=== PATIENT | male | born 1940 | race Caucasian/White ===

== ENCOUNTER 2017-01-29 10:26 | Emergency (ER) | payer MEDICARE, OTHER ==
[~2017-01-29] VITALS: Ht 167.6 cm; Wt 71.0 kg
[~2017-01-29 10:26] MED LIST: AUG875 PO; NAPR-688 PO
[2017-01-29 10:28] VITALS: Ht 167.6 cm; Wt 71.0 kg
[2017-01-29] MEDS ORDERED: ACETAMINOPHEN 500 MG TAB PO STA (11:46)
--- NOTE | 2017-01-29 11:50 | ERD ---
ER Documentation Chief Complaint Date/Time DATE: 01/29/17 TIME: 11:48 Chief Complaint Complains of cough, colds and flu-like symptoms x 3 days HPI This is a 76-year-old male who presents the emergency department today complaining of cough, fever, chills and some back pain for the past 4 days. States he has tried NyQuil and fatigue. Denies any medical problems. Denies any vomiting, diarrhea, abdominal pain, dysuria ROS All systems reviewed and are negative except as per history of present illness. Medications Home Meds Active Scripts Naproxen* (Naproxen*) 500 Mg Tablet, 500 MG PO BID Y for PAIN, #30 TAB Prov:AYDE BROWNING PA-C 10/07/14 Amoxicillin-Clavulanate K* (Augmentin*) 875 Mg Tab, 875 MG PO BID for 10 Days Prov:AYDE BROWNING PA-C 10/07/14 Allergies Allergies: Coded Allergies: No Known Allergy (Unverified , 01/25/12) PMhx/Soc History of Surgery: No Anesthesia Reaction: No Hx Neurological Disorder: No Hx Respiratory Disorders: No Hx Cardiac Disorders: No Hx Psychiatric Problems: No Hx Miscellaneous Medical Probl: No Hx Alcohol Use: Yes Hx Substance Use: No Hx Tobacco Use: No Physical Exam Vitals Vital Signs Date Time Temp Pulse Resp B/P Pulse Ox O2 Delivery O2 Flow Rate FiO2 01/29/17 14:29 99.3 01/29/17 12:07 100.4 89 22 98 Room Air 01/29/17 10:28 100.1 92 20 134/76 97 Physical Exam Const: NAD Head: Atraumatic Eyes: Normal Conjunctiva ENT: Ears TMs normal. Nose no drainage. Throat no erythema no exudate Neck: Full range of motion..~ No meningismus. Resp: Clear to auscultation bilaterally Cardio: Regular rate and rhythm, no murmurs Abd: Soft, non tender, non distended. Normal bowel sounds Skin: No petechiae or rashes Back: No midline tenderness. Nonspecific thoracic and upper back tenderness Ext: No cyanosis, or edema Neur: Awake and alert Psych: Normal Mood and Affect Result Diagram: 01/29/17 1043 01/29/17 1043 Results 24 hrs Laboratory Tests Test 01/29/17 10:43 01/29/17 12:30 White Blood Count 10.310^3/ul Red Blood Count 5.0410^6/ul Hemoglobin 14.4g/dl Hematocrit 44.8% Mean Corpuscular Volume 88.9fl Mean Corpuscular Hemoglobin 28.6pg Mean Corpuscular Hemoglobin Concent 32.1g/dl Red Cell Distribution Width 12.8% Platelet Count 43117^3/UL Mean Platelet Volume 9.7fl Neutrophils % 77.8% Lymphocytes % 10.1% Monocytes % 10.5% Eosinophils % 0.8% Basophils % 0.4% Nucleated Red Blood Cells % 0.0/100WBC Neutrophils # 8.010^3/ul Lymphocytes # 1.010^3/ul Monocytes # 1.110^3/ul Eosinophils # 0.110^3/ul Basophils # 0.010^3/ul Nucleated Red Blood Cells # 0.010^3/ul Sodium Level 139mmol/L Potassium Level 4.2mmol/L Chloride Level 107mmol/L Carbon Dioxide Level 23mmol/L Anion Gap 13 Blood Urea Nitrogen 13mg/dl Creatinine 0.87mg/dl Glucose Level 113mg/dl Calcium Level 9.4mg/dl Total Bilirubin 0.5mg/dl Direct Bilirubin 0.00mg/dl Indirect Bilirubin 0.5mg/dl Aspartate Amino Transf (AST/SGOT) 33IU/L Alanine Aminotransferase (ALT/SGPT) 36IU/L Alkaline Phosphatase 57IU/L Total Protein 8.3g/dl Albumin 4.5g/dl Globulin 3.80g/dl Albumin/Globulin Ratio 1.18 Urine Color MARIA DE JESUS Urine Clarity SLIGHTLY CLOUDY Urine pH 5.0 Urine Specific [place] 1.023 Urine Ketones NEGATIVEmg/dL Urine Nitrite NEGATIVEmg/dL Urine Bilirubin NEGATIVEmg/dL Urine Urobilinogen 1+mg/dL Urine Leukocyte Esterase NEGATIVELeu/ul Urine Microscopic RBC 17/HPF Urine Microscopic WBC 3/HPF Urine Mucus MANY/HPF Urine Hemoglobin 1+mg/dL Urine Glucose NEGATIVEmg/dL Urine Total Protein 1+mg/dl Current Medications Medications (Trade) Dose Ordered Sig/[place] Route PRN Reason Start Time Stop Time Status Last Admin Dose Admin Acetaminophen (Tylenol Tab) 500 mg ONCE STAT PO 01/29/17 11:46 01/29/17 11:48 DC 01/29/17 12:08 DIAGNOSTIC IMAGING REPORT Patient: JORGE ISLAS : 1940 Age: 76 Sex: M MR #: [id number] DOS: 01/29/17 0000 Ordering MD: CHARLINE ESPINOZA PA-C Location: [facility] Room/Bed: PROCEDURE: XR Chest. CLINICAL INDICATION: Cough, fever TECHNIQUE: Anterior chest x-ray. COMPARISON: None. FINDINGS: The exam is limited due to rotated positioning. The lungs are clear. No pleural effusion identified. There is no evidence of pneumothorax. The sella contours widened, likely due to rotated positioning. The cardiomediastinal silhouette is otherwise unremarkable. The soft tissues are normal. Moderate degenerative changes seen throughout the visualized thoracic spine. IMPRESSION: 1. No acute disease is seen in the chest. RPTAT: QQ .Chase Burton MD, MD Date Time Electronically viewed and signed by .Chase Burton MD, MD on 01/29/2017 12: 44 .M/ CC: CHARLINE ESPINOZA PA-C RUN DATE: 01/29/17 [facility] PAGE 1 RUN TIME: [id number] [place] [address] Chapin Medina M.D. [employer] [facility]#: [id number] Name: JORGE ISLAS Age/Sex: 76/M Attend Dr: GIANNA MURILLO MD Acct: [id number] MR# : [id number] : 1940 Location: FTE Admit: 01/29/17 Specimen: [id number] Status: Complete Cornelius: 01/29/17 Rcvd: 01/29 Source: [facility]ON[facility] Cerna Descrip: Procedure Result Microbiology INFLUENZA A & B BY EIA Final INFLU A&B BY EIA INFLUENZA A NEGATIVE (Ref Range Neg) INFLUENZA B NEGATIVE (Ref Range Neg) ................................................................................ ............ Flags: Critical Hi = *H Critical Lo = *L Microbiology Abnormal = * Abnormal Hi = H Abnormal Lo = L Blood Bank Abnormal = * Susceptability Flags: S = Sensitive R = Resistant I = Intermediate END OF REPORT Procedures/MDM This is a 76-year-old male who presents the emergency department today complaining of fever, cough and chills for the past 3-4 days. Patient was also complaining of some back pain. Patient has a low-grade temperature 100.1 here in the emergency department. His oxygen saturation is 97% however given patient 's age and complaints I did obtain a chest x-ray as well as influenza swab and UA. Influenza a and B is negative Chest x-ray shows no acute disease. Low suspicion for pneumonia, PE, abscess, pleural effusion, pneumothorax. UA shows negative leukocyte esterase negative nitrates. 3 microscopic white blood cells and 17 microscopic red blood cells. The patient with Dr. Murillo and he recommended laboratory workup given patient' s microscopic red blood cells to check his renal function. Laboratory workup shows a white blood cell count. He is not anemic. Platelets are within normal limits. Electrolytes are within normal limits. Creatinine is within normal limits. Glucose is within normal limits. Liver enzymes are within normal limits. Symptoms at this time is consistent with URI likely viral and microscopic hematuria. Patient was given Tylenol here in the emergency department. Will be given a prescription for Tylenol and Motrin for home in addition to Robitussin. At this time the patient is stable for discharge and outpatient management. Patient should follow up with their PCP in the next 1-2 days. They may return to the emergency department sooner for any persistent or worsening of symptoms. Patient understood and agreed with the plan. CHARLINE ESPINZOA PA-C Jan 29, 2017 11:50
--- NOTE | 2017-01-29 12:45 | RADRPT ---
PROCEDURE: XR Chest. CLINICAL INDICATION: Cough, fever TECHNIQUE: Anterior chest x-ray. COMPARISON: None. FINDINGS: The exam is limited due to rotated positioning. The lungs are clear. No pleural effusion identified. There is no evidence of pneumothorax. The sella contours widened, likely due to rotated positioning. The cardiomediastinal silhouette is o therwise unremarkable. The soft tissues are normal. Moderate degenerative changes seen throughout the visualized thoracic spine. IMPRESSION: 1. No acute disease is seen in the chest. RPTAT: QQ .Chase Burton MD, MD Date Time Electronically viewed and signed by .Chase Burton MD, on 01/29/2017 12:44 .M/
[2017-01-29 13:07] LABS: ADD UMIC YES; UR ASCORBIC ACID NEGATIVE (NEGATIVE); UR BILIRUBIN (Dip) NEGATIVE (NEGATIVE); UR BLOOD (Dip) 1+ mg/dL (NEGATIVE); UR CLARITY SLIGHTLY CLOUDY (CLEAR); UR COLOR AMBER (YELLOW); UR GLUCOSE (Dip) NEGATIVE (NEGATIVE); UR KETONES (Dip) NEGATIVE (NEGATIVE); UR LEUKOCYTE ESTERASE (Dip) NEGATIVE Leu/ul (NEGATIVE); UR MUCUS MANY /HPF (NONE SEEN); UR NITRITE (Dip) NEGATIVE (NEGATIVE); UR RBC 17 /HPF (0-5); UR SPECIFIC GRAVITY (Dip) 1.023 (1.003-1.030); UR TOTAL PROTEIN (Dip) 1+ mg/dl (NEGATIVE); UR UROBILINOGEN (Dip) 1+ mg/dL (NEGATIVE)
[2017-01-29 14:40] LABS: BASOPHILS % 0.4 % (0.0-2.0); EOSINOPHILS # 0.1 10^3/ul (0.0-0.5); EOSINOPHILS % 0.8 % (0.0-7.0); HEMATOCRIT 44.8 % (42.0-52.0); HEMOGLOBIN 14.4 g/dl (14.0-18.0); LYMPHOCYTES % 10.1 % (15.0-51.0); MEAN CORPUSCULAR HEMOGLOBIN 28.6 pg (29.0-33.0); MEAN CORPUSCULAR HGB CONC 32.1 g/dl (32.0-37.0); MEAN CORPUSCULAR VOLUME 88.9 fl (82.0-101.0); MEAN PLATELET VOLUME 9.7 fl (7.4-10.4); MONOCYTE # 1.1 10^3/ul (0.3-0.9); MONOCYTES % 10.5 % (0.0-11.0); NEUTROPHILS % 77.8 % (39.0-77.0); PLATELET COUNT 250 10^3/UL (140-415); RED BLOOD COUNT 5.04 10^6/ul (4.70-6.10); RED CELL DISTRIBUTION WIDTH 12.8 % (11.5-14.5); WHITE BLOOD COUNT 10.3 10^3/ul (4.8-10.8)
[2017-01-29 15:05] LABS: ALBUMIN 4.5 g/dl (3.3-4.9); ALBUMIN/GLOBULIN RATIO 1.18; BILIRUBIN,INDIRECT 0.5 mg/dl (0-1.1); BILIRUBIN,TOTAL 0.5 mg/dl (0.2-1.3); CALCIUM 9.4 mg/dl (8.4-10.2); CREATININE 0.87 mg/dl (0.61-1.24); POTASSIUM 4.2 mmol/L (3.5-5.1); TOTAL PROTEIN 8.3 g/dl (6.1-8.1)
[2017-01-29] MEDS ORDERED: IBUP-1542 PO (15:18)
[2017-01-29] MEDS ORDERED: ACET500C5 PO (15:19)
[2017-01-29] MEDS ORDERED: UDROBDM PO (15:19)
[2017-01-29 15:25] VITALS: BP 140/83; PULSE 80; RESP 17; TEMP 98.6
[2017-01-29] MEDS ORDERED: AZIT250T94 PO (15:25)
== END 2017-01-29 15:26 | disposition home or self-care (01) ==
LOC: FTE 10:26
DX: J06.9 Acute upper respiratory infection, unspecified (principal)
CPT/HCPCS: 36415; 71010; 80053; 81001; 85025; 87400